=== PATIENT | male | born 1955 | race Caucasian/White ===

== ENCOUNTER 2016-10-24 19:19 | Observation (INO) | payer BC ==
[2016-10-24 19:39] VITALS: BMI 28.2
[2016-10-24 20:25] LABS: BASOPHIL 0.3 % (0-2.0); EOSINOPHIL 0.3 % (0-4.5); MCH 28.7 pg (25.7-33.7); MCHC 33.2 g/dl (32.0-35.9); MEAN CELL VOLUME 86.4 fl (80-96); NEUTROPHILS 85.1 % (42.8-82.8); PLATELET COUNT 211 K/MM3 (134-434); RDW 13.2 % (11.9-15.9); WHITE BLOOD COUNT 13.2 K/mm3 (4.0-10.0)
--- NOTE | 2016-10-24 20:28 | PDOC ---
*Physical Exam - Vital Signs Last Vital Signs Temp Pulse Resp BP Pulse Ox 97.7 F 102 H 16 150/75 96 10/24/16 19:35 10/24/16 19:35 10/24/16 19:35 10/24/16 19:35 10/24/16 19:35 ED Treatment Course - LABORATORY CBC & Chemistry Diagram: 10/24/16 20:10 10/24/16 20:10 Medical Decision Making - Medical Decision Making 10/24/16 20:27 agree with care from CLEMENET Cadena *DC/Admit/Observation/Transfer Diagnosis at time of Disposition: Palpitations - Discharge Dispostion Disposition: HOME Condition at time of disposition: Fair - Prescriptions
--- NOTE | 2016-10-24 20:35 | PDOC ---
History of Present Illness <Gracie Turner - Last Filed: 10/24/16 22:39> - General History Source: Patient Exam Limitations: No Limitations - History of Present Illness Presenting Symptoms: Dizziness, Short of Breath Timing/Duration: reports: intermittent, resolved prior to arrival Severity/Quality: denies: mild, moderate, severe, aching, burning, dull, ingestion, pressure, sharp, stabbing, tearing, tightness, other Location: denies: substernal, central, epigastric, shoulder, back, abdomen, other Chest Pain Radiation: denies: no radiation, jaw, arms, neck, shoulders, back, sternal notch, epigastric, other Activities at Onset: reports: rest. denies: none, exertion, emotional upset, sleep, no specific activity, eating, working, sexual intercourse, other Prior Chest Pain/Cardiac Workup: reports: No prior chest pain, No prior cardiac workup, Other (Cardiac Ablation) Modifying Factors: worse with: antacids, breathing, coughing, defecating, eating , exercise, lying down, morphine, movement, nitroglycerin, oxygen, palpation, rest, other Nitro Today/Relief: No: no nitro taken today, 0.4 mg x 1, 0.4 mg x 2, 0.4 mg x 3 , 0.4 mg x 4, provided by EMS, provided by ED, provided at home, no relief, mild relief, complete relief Aspirin Received prior to arrival (Core Measure): No: no aspirin today, unknown , 81 mg x 1, 81 mg x 2, 81 mg x 3, 81 mg x 4, 325 mg x 1, provided at home, provided by EMS, provided by ED <Bradford Cadena - Last Filed: 10/24/16 22:42> - General Chief Complaint: Palpitations Stated Complaint: WEAKNESS Time Seen by Provider: 10/24/16 19:45 - History of Present Illness Initial Comments: 10/24/16 20:28 61yo Male patient w/ PmHx: A-fib. Ablation 7yrs ago presents to ED c/o "funny feeling in chest," dizziness, sweating, SOB. Patient denies CP, Back pain, n/v/d , fever, cough, congestion, diff breathing, or any other complaints. He stated, "I felt like I ran a mile, but I didn't run." Cardiology- Dr. Rojas (Bradford Cadena) Past History <Gracie Turner - Last Filed: 10/24/16 22:39> - Travel Traveled outside of the country in the last 30 days: No Close contact w/someone who was outside of country & ill: No - Past Medical History Cardiac Disorders: Yes (a fib, had ablation) - Immunization History Immunization Up to Date: Yes - Psycho/Social/Smoking Cessation Hx Anxiety: No Suicidal Ideation: No Smoking Status: No Smoking History: Never smoked Have you smoked in the past 12 months: No Number of Cigarettes Smoked Daily: 0 Information on smoking cessation initiated: No Hx Alcohol Use: No Drug/Substance Use Hx: No Substance Use Type: None <Bradford Cadena - Last Filed: 10/24/16 22:42> - Past Medical History Allergies/Adverse Reactions: Allergies Allergy/AdvReac Type Severity Reaction Status Date / Time No Known Allergies Allergy Verified 10/24/16 19:34 Review of Systems - Review of Systems Able to Perform ROS?: Yes Is the patient limited [place] proficient: No Constitutional: Yes: Diaphoresis. No: Chills, Fever, Loss of Appetite, Malaise , Weakness Respiratory: Yes: Shortness of Breath Cardiac (ROS): Yes: Palpitations. No: Chest Pain, Lightheadedness, Syncope, Chest Tightness Neurological: Yes: Dizziness. No: Headache, Seizure, Weakness, Unsteady Gait, Ataxia All Other Systems: Reviewed and Negative <Bradford Cadena - Last Filed: 10/24/16 22:42> *Physical Exam - Physical Exam General Appearance: Yes: Nourished, Appropriately Dressed. No: Apparent Distress, Mild Distress, Moderate Distress, Severe Distress Neck: positive: Trachea midline, Supple. negative: Decreased range of motion, Stridor, Lymphadenopathy (R), Lymphadenopathy (L), Tender lateral, Tender midline Respiratory/Chest: positive: Lungs Clear, Normal Breath Sounds. negative: Chest Tender, Respiratory Distress, Accessory Muscle Use, Labored Respiration, Rapid RR, Crackles, Rhonchi, Stridor, Wheezing Cardiovascular: positive: Regular Rhythm, Regular Rate Gastrointestinal/Abdominal: positive: Normal Bowel Sounds, Soft. negative: Distended, Guarding, Rebound, Tenderness Musculoskeletal: positive: Normal Inspection. negative: CVA Tenderness Extremity: positive: Normal Capillary Refill, Normal Inspection, Normal Range of Motion. negative: Pedal Edema, Swelling, Calf Tenderness, Erythema, Inflammation Integumentary: positive: Normal Color, Dry, Warm. negative: Erythema, Diaphoresis, Moist, Hives, Rash, Swelling Neurologic: positive: register of wills II-XII NML intact, Fully Oriented, Alert, Normal Mood/ Affect, Normal Response, Motor Strength 5/5 <Bradford Cadena - Last Filed: 10/24/16 22:42> - Vital Signs Last Vital Signs Temp Pulse Resp BP Pulse Ox 97.7 F 102 H 16 150/75 96 10/24/16 19:35 10/24/16 19:35 10/24/16 19:35 10/24/16 19:35 10/24/16 19:35 ED Treatment Course - LABORATORY CBC & Chemistry Diagram: 10/24/16 20:10 10/24/16 20:10 <Gracie Turner - Last Filed: 10/24/16 22:39> - LABORATORY CBC & Chemistry Diagram: 10/24/16 20:10 10/24/16 20:10 <Bradford Cadena - Last Filed: 10/24/16 22:42> - ADDITIONAL ORDERS Additional order review: Laboratory Results 10/24/16 10/24/16 20:10 20:10 INR 1.00 PTT (Actin FS) 24.3 L Sodium 139 Potassium 4.2 Chloride 104 Carbon Dioxide 27 Anion Gap 8 BUN 20 H Creatinine 1.2 D Creat Clearance w eGFR > 60 Random Glucose 99 Calcium 9.3 Total Bilirubin 0.5 D AST 18 D ALT 42 D Alkaline Phosphatase 76 Creatine Kinase 93 Troponin I < 0.02 Total Protein 7.2 Albumin 4.0 10/24/16 20:10 RBC 5.12 MCV 86.4 MCHC 33.2 RDW 13.2 MPV 8.0 Neutrophils % 85.1 H Lymphocytes % 9.6 D Monocytes % 4.7 Eosinophils % 0.3 Basophils % 0.3 - RADIOLOGY Radiology Studies Ordered: Category Date Time Status CHEST PA & LAT [RAD] Stat Radiology 10/24/16 19:46 Taken Medical Decision Making <Gracie Turner - Last Filed: 10/24/16 22:39> <Bradford Cadena - Last Filed: 10/24/16 22:42> - Medical Decision Making 10/24/16 22:[address] Edgar Horn (via answering service) at 22:36 Awaiting call back 10/24/16 22:39 Patient's case discussed with Dr. Horn at 22:39 (Gracie Turner) *DC/Admit/Observation/Transfer <Gracie Turner - Last Filed: 10/24/16 22:39> - Discharge Dispostion Admit: Yes <Bradford Cadena - Last Filed: 10/24/16 22:42> Diagnosis at time of Disposition: Palpitations - Discharge Dispostion Condition at time of disposition: Fair
[2016-10-24 20:44] LABS: ACTIVATED PTT 24.3 SECONDS (26.9-34.4)
[2016-10-24 20:50] LABS: ANION GAP 8 (8-16); BILIRUBIN,TOTAL 0.5 mg/dL (0.2-1.0); CALCIUM 9.3 mg/dL (8.5-10.1); CO2 27 mmol/L (21-32); COCKROFT - GAULT 93.5; CREATININE 1.2 mg/dL (0.7-1.3); GLUCOSE,RANDOM 99 mg/dL (74-106); SGOT/AST 18 U/L (15-37); SGPT/ALT 42 U/L (12-78); TOT PROT 7.2 g/dl (6.4-8.2)
[2016-10-24 20:53] LABS: ALK PHOS 76 U/L (45-117); TROPONIN I < 0.02 ng/ml (0.00-0.05)
[2016-10-25] MEDS ORDERED: ZOLPIDEM TARTRATE 5 MG TABLET PO ONE (03:45)
[2016-10-25 08:53] LABS: CHOLESTEROL 182 mg/dL (50-200); LDL CHOLESTEROL (ONLY SJRH) 126 mg/dL (5-100); THYROID STIMULATING HORMONE 0.86 uIU/ml (0.358-3.74)
[2016-10-25 09:15] LABS: TROPONIN I < 0.02 ng/ml (0.00-0.05)
[2016-10-25] MEDS ORDERED: ASPIRIN 81 MG CHEWABLE TABLETS PO SCH (10:00)
--- NOTE | 2016-10-25 10:35 | HP ---
Admitting History and Physical - Primary Care Physician PCP: Oneil Millard - Admission Chief Complaint: rapid heart rate History of Present Illness: ER HISTORY - History of Present Illness Initial Comments: 10/24/16 20:28 61yo Male patient w/ PmHx: A-fib. Ablation 7yrs ago presents to ED c/o "funny feeling in chest," dizziness, sweating, SOB. Patient denies CP, Back pain, n/v/d , fever, cough, congestion, diff breathing, or any other complaints. He stated, "I felt like I ran a mile, but I didn't run." Cardiology- Dr. 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 Had rapid AFib and ablation 7 yrs ago. No chest pain. Currently feels fine. Had echo just now. Occasional alcohol use, denies smoking or dug use. Drinks 1-3 cups coffee daily. History Source: Patient Limitations to Obtaining History: No Limitations - Past Medical History Cardiovascular: Yes: AFIB (paroxysmal-- s/p ablation) - Smoking History Smoking history: Never smoked Have you smoked in the past 12 months: No Aproximately how many cigarettes per day: 0 - Alcohol/Substance Use Hx Alcohol Use: No Home Medications - Allergies Allergies/Adverse Reactions: Allergies Allergy/AdvReac Type Severity Reaction Status Date / Time No Known Allergies Allergy Verified 10/24/16 19:34 Review of Systems - Review of Systems Constitutional: denies: Chills, Fever, Loss of Appetite, Weakness Cardiovascular: denies: Chest Pain, Palpitations, Shortness of Breath Physical Examination Vital Signs: Vital Signs Temperature 99.4 F 10/25/16 03:30 Pulse Rate 88 10/25/16 03:30 Respiratory Rate 20 10/25/16 03:30 Blood Pressure 109/70 10/25/16 03:30 O2 Sat by Pulse Oximetry (%) 98 10/25/16 03:00 Constitutional: Yes: No Distress, Calm Cardiovascular: Yes: Regular Rate and Rhythm Respiratory: Yes: CTA Bilaterally Gastrointestinal: Yes: Normal Bowel Sounds, Soft, Abdomen, Obese. No: Distention, Tenderness Edema: No Psychiatric: Yes: Alert, Oriented Labs: Laboratory Results - last 24 hr 10/24/16 10/24/16 10/24/16 20:10 20:10 20:10 WBC 13.2 H D RBC 5.12 Hgb 14.7 Hct 44.2 MCV 86.4 MCHC 33.2 RDW 13.2 Plt Count 211 MPV 8.0 Neutrophils % 85.1 H Lymphocytes % 9.6 D Monocytes % 4.7 Eosinophils % 0.3 Basophils % 0.3 INR 1.00 PTT (Actin FS) 24.3 L Sodium 139 Potassium 4.2 Chloride 104 Carbon Dioxide 27 Anion Gap 8 BUN 20 H Creatinine 1.2 D Creat Clearance w eGFR > 60 Random Glucose 99 Calcium 9.3 Total Bilirubin 0.5 D AST 18 D ALT 42 D Alkaline Phosphatase 76 Creatine Kinase 93 Troponin I < 0.02 Total Protein 7.2 Albumin 4.0 Triglycerides Cholesterol Total LDL Cholesterol HDL Cholesterol TSH 10/24/16 10/25/16 10/25/16 20:10 07:25 07:25 WBC RBC Hgb Hct MCV MCHC RDW Plt Count MPV Neutrophils % Lymphocytes % Monocytes % Eosinophils % Basophils % INR PTT (Actin FS) Sodium Potassium Chloride Carbon Dioxide Anion Gap BUN Creatinine Creat Clearance w eGFR Random Glucose Calcium Total Bilirubin AST ALT Alkaline Phosphatase Creatine Kinase 83 Cancelled Troponin I < 0.02 Cancelled Total Protein Albumin Triglycerides 66 Cholesterol 182 Total LDL Cholesterol 126 H HDL Cholesterol 46 TSH 1.11 0.86 D Imaging - Results Chest X-ray: Image Reviewed (clear) EKG: Image Reviewed (Sinus tachycardia) Problem List - Problems (1) Palpitations Code(s): R00.2 - PALPITATIONS Assessment/Plan PLAN Pt on ASA here ACS ruled out Thyroid function tests normal Spoke with Cardiology Echo done and pending Ordered carotid Doppler as pt had c/o dizziness yesterday If normal, will dc home on PRN Toprol.
--- NOTE | 2016-10-25 12:01 | CON.CARD ---
Cardiology Consult (text) - Consultation Consultation Note: cc: palps hpi: 61 m hx afib s/p remote ablation, here with palps. Since his ablation he occasionally gets palps and in the past has taken prn toprol for them. Has not taken toprol in a long time. Yesterday was at work and began to feel palps and sweaty sensation. Palps were mild, felt like extra beats, and lasted for an hour. No cp, sob, dizzy, loc, pnd, orthopnea, le edema. Feeling well this AM. Sees dr yang for cardio. pmh: per hpi psh: ablation social: no tob fam: no premature cad, scd ros: per hpi; no vomit, diarrhea, herrera, vision changes, gib, hematuria, rash, muscle pains meds:none taken pe: Vital Signs Period Temp Pulse Resp BP Sys/Agee Pulse Ox Last 24 Hr 97.7 F-99.4 F 88-102 16-20 109-150/70-75 96-98 nad no jvd rrr s1s2 no mrg cta bl nl eff aaox3 no le e/c/c abd nt nd pos bs no jaundice diaphoresis pos dp pt no carotid bruits Laboratory Last Values WBC 13.2 K/mm3 (4.0-10.0) H D 10/24/16 20:10 RBC 5.12 M/mm3 (4.00-5.60) 10/24/16 20:10 Hgb 14.7 GM/dL (11.7-16.9) 10/24/16 20:10 Hct 44.2 % (35.4-49) 10/24/16 20:10 MCV 86.4 fl (80-96) 10/24/16 20:10 MCHC 33.2 g/dl (32.0-35.9) 10/24/16 20:10 RDW 13.2 % (11.9-15.9) 10/24/16 20:10 Plt Count 211 K/MM3 (134-434) 10/24/16 20:10 MPV 8.0 fl (7.5-11.1) 10/24/16 20:10 Neutrophils % 85.1 % (42.8-82.8) H 10/24/16 20:10 Lymphocytes % 9.6 % (8-40) D 10/24/16 20:10 Monocytes % 4.7 % (3.8-10.2) 10/24/16 20:10 Eosinophils % 0.3 % (0-4.5) 10/24/16 20:10 Basophils % 0.3 % (0-2.0) 10/24/16 20:10 INR 1.00 (0.82-1.09) 10/24/16 20:10 PTT (Actin FS) 24.3 SECONDS (26.9-34.4) L 10/24/16 20:10 Sodium 139 mmol/L (136-145) 10/24/16 20:10 Potassium 4.2 mmol/L (3.5-5.1) 10/24/16 20:10 Chloride 104 mmol/L (98-107) 10/24/16 20:10 Carbon Dioxide 27 mmol/L (21-32) 10/24/16 20:10 Anion Gap 8 (8-16) 10/24/16 20:10 BUN 20 mg/dL (7-18) H 10/24/16 20:10 Creatinine 1.2 mg/dL (0.7-1.3) D 10/24/16 20:10 Creat Clearance w eGFR > 60 (>60) 10/24/16 20:10 Random Glucose 99 mg/dL (74-106) 10/24/16 20:10 Calcium 9.3 mg/dL (8.5-10.1) 10/24/16 20:10 Total Bilirubin 0.5 mg/dL (0.2-1.0) D 10/24/16 20:10 AST 18 U/L (15-37) D 10/24/16 20:10 ALT 42 U/L (12-78) D 10/24/16 20:10 Alkaline Phosphatase 76 U/L (45-117) 10/24/16 20:10 Creatine Kinase 83 IU/L (39-308) 10/25/16 07:25 Troponin I < 0.02 ng/ml (0.00-0.05) 10/25/16 07:25 Total Protein 7.2 g/dl (6.4-8.2) 10/24/16 20:10 Albumin 4.0 g/dl (3.4-5.0) 10/24/16 20:10 Triglycerides 66 mg/dL (35-160) 10/25/16 07:25 Cholesterol 182 mg/dL (50-200) 10/25/16 07:25 Total LDL Cholesterol 126 mg/dL (5-100) H 10/25/16 07:25 HDL Cholesterol 46 mg/dL (40-60) 10/25/16 07:25 TSH 0.86 uIU/ml (0.358-3.74) D 10/25/16 07:25 cxr: clear lungs ecg 10/24/16: sr, pac, pvc, nl intervals, no ischemic changes tele: sr, occ pacs a/p: 61 m hx afib s/p remote ablation, here with palps. palps: -no signs of arrhythmia or afib recurrence -tele, ecg show occasional pacs and pt reports having sxs of palps during this ectopy -previously pt took toprol 25 qd prn for palps and said this had controlled his sxs. Resume same treatment. -check echo here afib s/p remote ablation: -in sr, no signs of afib recurrence -not on ac since ablation -check echo if echo benign then ok for dc with outpt f/u with dr yang
[2016-10-25 15:14] VITALS: BP 138/72; PULSE 88; TEMP 98.4
--- NOTE | 2016-10-25 15:18 | DS ---
Physical Examination Vital Signs: Vital Signs Temperature 98.4 F 10/25/16 15:00 Pulse Rate 88 10/25/16 15:00 Respiratory Rate 20 10/25/16 15:00 Blood Pressure 138/72 10/25/16 15:00 O2 Sat by Pulse Oximetry (%) 98 10/25/16 10:00 Discharge Summary Reason For Visit: PALPITATIONS Current Active Problems Palpitations (Acute) Hospital Course: admitted for palpitations and feeling his heart racing. When he came to the ER he had sinus tachycardia. Now currently sinus rhythm He was seen by carbon brushes assembler and echocardiogram done was normal. Telemetry uneventful. Carotid Doppler negative. Patient advised to take Toprol 25 mg as needed if he feels palpitations as he usually gets these palpitations.labs normal, ACS ruled out He is advised to follow with the carbon brushes assembler upon discharge Stable for discharge home Condition: Fair - Instructions Diet, Activity, Other Instructions: take Toprol as needed if you feel palpitations, racing heart Referrals: Oneil Millard MD [Primary Care Provider] - Disposition: HOME - Home Medications Comprehensive Discharge Medication List: Ambulatory Orders Metoprolol Succinate [Toprol Xl -] 25 mg PO DAILY #30 tab.sr.24h 10/25/16
--- NOTE | 2016-10-25 15:36 | EKG ---
Test Reason : Blood Pressure : / mmHG Vent. Rate : 085 BPM Atrial Rate : 085 BPM P-R Int : 160 ms QRS Dur : 106 ms QT Int : 372 ms P-R-T Axes : 069 021 035 degrees QTc Int : 442 ms NORMAL SINUS RHYTHM NONSPECIFIC T WAVE ABNORMALITY ABNORMAL ECG WHEN COMPARED WITH ECG OF 24-OCT-2016 21:59, PREMATURE VENTRICULAR COMPLEXES ARE NO LONGER PRESENT PREMATURE ATRIAL COMPLEXES ARE NO LONGER PRESENT NONSPECIFIC T WAVE ABNORMALITY NOW EVIDENT IN INFERIOR LEADS Confirmed by TEQUILA MONAHAN MD ([id number]) on 10/25/2016 3:36:00 PM Referred By: Confirmed By:TEQUILA MONAHAN MD
--- NOTE | 2016-10-25 16:28 | EKG ---
Test Reason : Blood Pressure : / mmHG Vent. Rate : 101 BPM Atrial Rate : 101 BPM P-R Int : 144 ms QRS Dur : 100 ms QT Int : 336 ms P-R-T Axes : 064 015 063 degrees QTc Int : 435 ms SINUS TACHYCARDIA NONSPECIFIC T WAVE ABNORMALITY ABNORMAL ECG WHEN COMPARED WITH ECG OF 24-AUG-2002 08:39, SINUS RHYTHM HAS REPLACED ATRIAL FIBRILLATION NONSPECIFIC T WAVE ABNORMALITY, IMPROVED IN INFERIOR LEADS Confirmed by HERO FARIAS, TEQUILA ([id number]) on 10/25/2016 4:27:54 PM Referred By: Confirmed By:TEQUILA MONAHAN MD
--- NOTE | 2016-10-28 16:30 | EKG ---
Test Reason : Blood Pressure : / mmHG Vent. Rate : 095 BPM Atrial Rate : 095 BPM P-R Int : 158 ms QRS Dur : 108 ms QT Int : 354 ms P-R-T Axes : 061 014 059 degrees QTc Int : 444 ms SINUS RHYTHM WITH BLOCKED PREMATURE ATRIAL COMPLEXES WITH OCCASIONAL PREMATURE VENTRICULAR COMPLEXES NONSPECIFIC T WAVE ABNORMALITY ABNORMAL ECG WHEN COMPARED WITH ECG OF 24-OCT-2016 19:57, PREMATURE VENTRICULAR COMPLEXES ARE NOW PRESENT PREMATURE ATRIAL COMPLEXES ARE NOW PRESENT Confirmed by SUDHA FOOTE MD ([id number]) on 10/28/2016 4:29:55 PM Referred By: Confirmed By:SUDHA FOOTE MD
== END 2016-10-25 15:44 | disposition home or self-care (01) ==
LOC: JER 19:19 → JERBED 22:42 → J4W 10-25 02:27
PROVIDERS: ADMIT Internal Medicine; ATTEND Internal Medicine
DX: R00.2 Palpitations (principal); Z86.79 Personal history of other diseases of the circulatory system
CPT/HCPCS: 36415; 71020-TC; 80053; 80061; 82550; 83721; 84443; 84484; 85025; 85610; 85730; 93005; 93010; 93306-TC; 93880-TC; 99285-25; G0378